=== PATIENT | male | born 1955 | race African-American/Black ===

== ENCOUNTER 2016-11-07 09:29 | Emergency (ER) | payer OTHER ==
[~2016-11-07] VITALS: Ht 185.4 cm; Wt 104.5 kg
[~2016-11-07 09:29] MED LIST: FLEXERIL 1010 MG/TAB PO; HCTZ 25MG TAB25 MG; NORCO 325 MG-51 TAB PO; SINGULAIR 110 MG/TAB PO
[2016-11-07 09:30] VITALS: TEMP 98.3
[2016-11-07 10:17] VITALS: BP 133/88
[2016-11-07 10:48] VITALS: PULSE 112
[2016-11-07] MEDS ORDERED: PRINIVIL10 MG PO (10:54)
== END 2016-11-07 10:48 | disposition home or self-care (01) ==
LOC: COL.ER 09:29
DX: S40.011A Contusion of right shoulder, initial encounter (principal); S00.531A Contusion of lip, initial encounter; Y35.811A Legal intervention involving manhandling, law enforcement official injured, initial encounter; Y04.2XXA Assault by strike against or bumped into by another person, initial encounter; Y92.238 Other place in hospital as the place of occurrence of the external cause; R00.2 Palpitations; Z77.098 Contact with and (suspected) exposure to other hazardous, chiefly nonmedicinal, chemicals; I10 Essential (primary) hypertension; J45.909 Unspecified asthma, uncomplicated; Z87.891 Personal history of nicotine dependence; S00.511A Abrasion of lip, initial encounter

== ENCOUNTER 2018-05-25 07:59 | Outpatient (RCR) | payer OTHER ==
[~2018-05-25 07:59] MED LIST changes: +PRINIVIL10 MG PO
== END 2018-08-18 15:14 | disposition home or self-care (01) ==
LOC: WSOH 07:59
DX: Z01.89 Encounter for other specified special examinations (principal)

== ENCOUNTER 2018-07-26 22:53 | Emergency (ER) | payer OTHER ==
[~2018-07-26] VITALS: Ht 185.4 cm; Wt 104.5 kg
[2018-07-26 23:01] VITALS: TEMP 97.9
[2018-07-26 23:34] LABS: BASO % 0.2 % (0.0-2.0); EOS % 0.3 % (0-4.0); GRAN # 4.9 (1.4-6.5); GRAN % 56.6 % (42.2-75.2); HEMOGLOBIN 14.1 g/dl (13.5-18.0); LYMPH # 3.1 (1.2-3.4); LYMPH % 35.8 % (20.0-51.0); MEAN CELL VOLUME 86 fl (80.0-100.0); MEAN CORPUSCULAR HEMOGLOBIN 29 pg (27.0-31.0); MEAN CORPUSCULAR HGB CONC 34 g/dl (33.0-37.0); MEAN PLATELET VOLUME 10.6 fl (7.4-10.4); MONO # 0.6 (0.1-0.6); MONO % 6.6 % (1.7-9.3); PLATELET COUNT 162 K/mm3 (130-400); RED BLOOD COUNT 4.89 M/mm3 (4.20-5.60); REDCELL DISTRIBUTION WIDTH-CV 14.6 % (11.5-14.5)
[2018-07-26 23:44] LABS: ALBUMIN 4.2 gm/dL (3.5-5.0); BILIRUBIN,TOTAL 0.4 mg/dL (0.0-1.0); CALCIUM 9.4 mg/dL (8.4-10.2); CREATININE, serum 1.02 (0.66-1.25); POTASSIUM 3.9 mmol/L (3.4-5.0); TOTAL PROTEIN 7.6 gm/dL (6.4-8.2)
[2018-07-26 23:50] LABS: INR 1.1 (0.8-3.0); PROTHROMBIN TIME 12.8 SECONDS (9.7-12.8)
[2018-07-26 23:54] LABS: TROPONIN-I 0.013 ng/mL (0.000-0.035)
[2018-07-27 04:25] VITALS: BP 121/76; PULSE 69
== END 2018-07-27 04:25 | disposition home or self-care (01) ==
LOC: COL.ER 22:53
PROVIDERS: Emergency Medicine
DX: R20.2 Paresthesia of skin (principal); G45.9 Transient cerebral ischemic attack, unspecified; I10 Essential (primary) hypertension
CPT/HCPCS: J7030

== ENCOUNTER → 2018-10-23 | Outpatient (CLI) | payer OTHER | LOC: COL.VAS 09:26 | DX: G45.9 Transient cerebral ischemic attack, unspecified (principal) ==

== ENCOUNTER 2019-12-21 11:27 | Emergency (ER) | payer OTHER ==
[~2019-12-21] VITALS: Ht 185.4 cm; Wt 106.8 kg
[2019-12-21 11:44] VITALS: TEMP 98
[2019-12-21] MEDS ORDERED: SINGULAIR 110 MG/TAB PO (12:58)
[2019-12-21] MEDS ORDERED: CLARITIN 1010 MG/TAB PO (12:58)
[2019-12-21 13:07] VITALS: BP 158/89; PULSE 81
== END 2019-12-21 13:07 | disposition home or self-care (01) ==
LOC: COL.ER 11:27
DX: J45.20 Mild intermittent asthma, uncomplicated (principal); H69.91 Unspecified Eustachian tube disorder, right ear; I10 Essential (primary) hypertension

== ENCOUNTER 2020-02-07 09:02 | Emergency (ER) | payer OTHER ==
[~2020-02-07] VITALS: Ht 185.4 cm; Wt 109.1 kg
[~2020-02-07 09:02] MED LIST changes: +CLARITIN 1010 MG/TAB PO
[2020-02-07 09:12] VITALS: TEMP 97.8
[2020-02-07 12:45] LABS: ALANINE AMINOTRANSFERASE 75 U/L (4-49); ALBUMIN 4.7 gm/dL (3.5-5.0); ALKALINE PHOSPHATASE 83 U/L (50-136); ANION GAP 10 mmol/L (7-16); AST,SGOT 56 U/L (15-37); BILIRUBIN,TOTAL 0.6 mg/dL (0.0-1.0); BLOOD UREA NITROGEN 11 mg/dL (9-20); CALCIUM 9.4 mg/dL (8.4-10.2); CARBON DIOXIDE 25 mmol/L (22-30); CHLORIDE 104 mmol/L (98-107); GLUCOSE 112 mg/dL (74-106); POTASSIUM 3.8 mmol/L (3.4-5.0); SODIUM 139 mmol/L (137-145); TOTAL PROTEIN 8.4 gm/dL (6.4-8.2)
[2020-02-07 12:58] LABS: BASO % 0.3 % (0.0-2.0); EOS # 0.1 (0.0-0.7); EOS % 1.1 % (0-4.0); GRAN % 52.2 % (42.2-75.2); HEMATOCRIT 44.9 % (42.0-52.0); HEMOGLOBIN 14.9 g/dl (13.5-18.0); LYMPH # 2.8 (1.2-3.4); LYMPH % 37.5 % (20.0-51.0); MEAN CELL VOLUME 86 fl (80.0-100.0); MEAN CORPUSCULAR HEMOGLOBIN 29 pg (27.0-31.0); MEAN CORPUSCULAR HGB CONC 33 g/dl (33.0-37.0); MEAN PLATELET VOLUME 10.6 fl (7.4-10.4); MONO # 0.6 (0.1-0.6); MONO % 8.1 % (1.7-9.3); PLATELET COUNT 171 K/mm3 (130-400); REDCELL DISTRIBUTION WIDTH-CV 14.5 % (11.5-14.5)
[2020-02-07 13:02] LABS: TROPONIN-I < 0.012 ng/mL (0.000-0.035)
[2020-02-07] MEDS ORDERED: PREDNISONE20 MG PO (14:02)
[2020-02-07 14:18] VITALS: BP 131/91; PULSE 84
== END 2020-02-07 14:20 | disposition home or self-care (01) ==
LOC: COL.ER 09:02
PROVIDERS: Physician Assistant
DX: J20.9 Acute bronchitis, unspecified (principal); J32.9 Chronic sinusitis, unspecified; I10 Essential (primary) hypertension; Z20.828 Contact with and (suspected) exposure to other viral communicable diseases; Z23 Encounter for immunization; Z87.891 Personal history of nicotine dependence; Z79.2 Long term (current) use of antibiotics

== ENCOUNTER 2020-03-17 15:24 | Emergency (ER) | payer OTHER ==
[~2020-03-17] VITALS: Ht 185.4 cm; Wt 104.5 kg
[~2020-03-17 15:24] MED LIST changes: +PREDNISONE20 MG PO
[2020-03-17 15:33] VITALS: TEMP 98.9
[2020-03-17 16:49] LABS: BASO % 0.4 % (0.0-2.0); EOS % 0.5 % (0-4.0); GRAN # 3.9 (1.4-6.5); GRAN % 52.7 % (42.2-75.2); HEMATOCRIT 42.8 % (42.0-52.0); HEMOGLOBIN 14.3 g/dl (13.5-18.0); LYMPH # 2.8 (1.2-3.4); LYMPH % 37.4 % (20.0-51.0); MEAN CELL VOLUME 86 fl (80.0-100.0); MEAN CORPUSCULAR HEMOGLOBIN 29 pg (27.0-31.0); MEAN CORPUSCULAR HGB CONC 33 g/dl (33.0-37.0); MEAN PLATELET VOLUME 10.8 fl (7.4-10.4); MONO # 0.6 (0.1-0.6); MONO % 8.3 % (1.7-9.3); PLATELET COUNT 171 K/mm3 (130-400); RED BLOOD COUNT 4.97 M/mm3 (4.20-5.60); REDCELL DISTRIBUTION WIDTH-CV 14.4 % (11.5-14.5)
[2020-03-17 16:59] LABS: ALANINE AMINOTRANSFERASE 67 U/L (4-49); ALBUMIN 4.5 gm/dL (3.5-5.0); ALKALINE PHOSPHATASE 91 U/L (50-136); ANION GAP 8 mmol/L (7-16); AST,SGOT 54 U/L (15-37); BILIRUBIN,TOTAL 0.5 mg/dL (0.0-1.0); BLOOD UREA NITROGEN 16 mg/dL (9-20); C-REACTIVE PROTEIN 1.1 mg/dL (0.0-0.9); CALCIUM 9.7 mg/dL (8.4-10.2); CARBON DIOXIDE 29 mmol/L (22-30); CHLORIDE 101 mmol/L (98-107); CREATININE, serum 1.05 (0.66-1.25); GLUCOSE 97 mg/dL (74-106); SODIUM 138 mmol/L (137-145); TOTAL PROTEIN 7.7 gm/dL (6.4-8.2)
[2020-03-17 17:08] LABS: TROPONIN-I < 0.012 ng/mL (0.000-0.035)
[2020-03-17] MEDS ORDERED: PLAVIX 75MG TAB75 MG PO (17:49)
[2020-03-17] MEDS ORDERED: HCTZ12.5TAB PO (17:51)
[2020-03-17] MEDS ORDERED: NORVASC 10MG10 MG PO (17:51)
[2020-03-17 18:00] VITALS: BP 142/94; PULSE 82
== END 2020-03-17 18:12 | disposition home or self-care (01) ==
LOC: COL.ER 15:24
PROVIDERS: Nurse Practitioner
DX: R06.00 Dyspnea, unspecified (principal); Z87.891 Personal history of nicotine dependence; Z79.02 Long term (current) use of antithrombotics/antiplatelets

== ENCOUNTER 2021-01-26 18:02 | Emergency (ER) | payer OTHER ==
[~2021-01-26] VITALS: Ht 185.4 cm; Wt 104.5 kg
[~2021-01-26 18:02] MED LIST changes: +HCTZ12.5TAB PO; +NORVASC 10MG10 MG PO; +PLAVIX 75MG TAB75 MG PO
[2021-01-26 18:18] VITALS: TEMP 98.8
[2021-01-26 18:32] LABS: BASO % 0.5 % (0.0-2.0); EOS # 0.1 K/mm3 (0.0-0.7); EOS % 1.2 % (0-4.0); GRAN # 5.3 K/mm3 (1.4-6.5); HEMATOCRIT 43.9 % (42.0-52.0); HEMOGLOBIN 14.5 g/dl (13.5-18.0); LYMPH # 2.1 K/mm3 (1.2-3.4); LYMPH % 25.9 % (20.0-51.0); MEAN CELL VOLUME 85 fl (80.0-100.0); MEAN CORPUSCULAR HEMOGLOBIN 28 pg (27.0-31.0); MEAN CORPUSCULAR HGB CONC 33 g/dl (33.0-37.0); MEAN PLATELET VOLUME 9.8 fl (7.4-10.4); MONO # 0.6 K/mm3 (0.1-0.6); PLATELET COUNT 166 K/mm3 (130-400); RED BLOOD COUNT 5.17 M/mm3 (4.20-5.60)
[2021-01-26 18:50] LABS: ALBUMIN 4.2 gm/dL (3.4-4.8); BILIRUBIN,TOTAL 0.6 mg/dL (0.2-1.2); CREATININE, serum 1.17 mg/dL (0.72-1.25); POTASSIUM 3.8 mmol/L (3.5-4.5); TOTAL PROTEIN 8.2 gm/dL (6.2-8.1)
[2021-01-26 18:56] LABS: TROPONIN-I 0.019 ng/mL (0.00-0.033)
[2021-01-26 19:23] VITALS: BP 144/94; PULSE 89
== END 2021-01-26 19:27 | disposition home or self-care (01) ==
LOC: COL.ER 18:02
PROVIDERS: Emergency Medicine
DX: R07.9 Chest pain, unspecified (principal); R05.9 Cough, unspecified; I10 Essential (primary) hypertension; I48.91 Unspecified atrial fibrillation; J45.909 Unspecified asthma, uncomplicated; Z79.899 Other long term (current) drug therapy; Z79.02 Long term (current) use of antithrombotics/antiplatelets

== ENCOUNTER 2021-08-15 05:24 | Day surgery (SDC) | payer OTHER, MEDICARE ==
[~2021-08-15] VITALS: Ht 185.4 cm; Wt 102.2 kg
[2021-08-15] VITALS (9 sets, daily range): BP systolic 117–1117; BP diastolic 70–91; PULSE 69–77; TEMP 97.3–97.7
[2021-08-15] MEDS ORDERED: COREG 25MG25 MG/TAB PO (06:02)
[2021-08-15] MEDS ORDERED: PRILOSEC 20MG20 MG PO (06:03)
[2021-08-15] MEDS ORDERED: HYTRIN 1MG C1 MG/CAP PO (06:04)
[2021-08-15] MEDS ORDERED: NORCO 325 MG-51 TAB PO (09:58)
--- NOTE | 2021-08-15 10:27 | NUR ---
Patient returns to room 7 per cart from PACU per cart accompanied by Kristy TRENT and is awake and alert. IV fluids infusing. Incisional sites X3 covered with Exofin and wound edges well approixmated. Temp 97.6 and room air sats 95%. Siderails up x2 and call light in reach. Spouse in room. Taking ice chips.
--- NOTE | 2021-08-15 10:42 | NUR ---
Resting and offers no compliants of pain or nausea.
--- NOTE | 2021-08-15 10:57 | NUR ---
Continues to rest without complaints. Drinking water. Denies pain or nausea.
--- NOTE | 2021-08-15 11:12 | NUR ---
Continues to rest without complaints.
--- NOTE | 2021-08-15 11:27 | NUR ---
Sipping on water. Continues to deny pain or nausea.
--- NOTE | 2021-08-15 11:57 | NUR ---
Eating muffin and drinking water. Continues to deny the need for pain medications. IV fluids all infused and converted to INT.
--- NOTE | 2021-08-15 12:27 | NUR ---
Tolerates muffin and water.
--- NOTE | 2021-08-15 12:42 | NUR ---
Assisted up to the bathroom. Voids and returns to room. Complains of increasing incisional pain at 6-7/10. Medicated with [place] 5mg one tab for pain.
--- NOTE | 2021-08-15 13:25 | NUR ---
Dismissal instructions given to patient and spouse and both verbalize understanding of these. States that the [place] was effective for pain. Patient dresses self.
--- NOTE | 2021-08-15 13:31 | NUR ---
Patient dismissed to home driven by spouse and taken to the front door per wheelchair and assisted into private vehicle with instructions in hand.
== END 2021-08-15 13:31 | disposition home or self-care (01) ==
LOC: SDCO 05:24
DX: K43.9 Ventral hernia without obstruction or gangrene (principal); Z86.73 Personal history of transient ischemic attack (TIA), and cerebral infarction without residual deficits; Z79.02 Long term (current) use of antithrombotics/antiplatelets; I10 Essential (primary) hypertension; G47.33 Obstructive sleep apnea (adult) (pediatric); K21.9 Gastro-esophageal reflux disease without esophagitis; Z79.51 Long term (current) use of inhaled steroids; Z79.899 Other long term (current) drug therapy
CPT/HCPCS: C1781; J0690; J1100; J1885; J2405; J2704; J3010; J7120

== ENCOUNTER 2021-09-21 11:21 | Emergency (ER) | payer OTHER, MEDICARE ==
[~2021-09-21] VITALS: Ht 182.9 cm; Wt 102.3 kg
[~2021-09-21 11:21] MED LIST changes: +COREG 25MG25 MG/TAB PO; +HYTRIN 1MG C1 MG/CAP PO; +PRILOSEC 20MG20 MG PO
[2021-09-21 11:35] VITALS: TEMP 98.2
[2021-09-21 11:59] LABS: BASO % 0.3 % (0.0-2.0); EOS # 0.1 K/mm3 (0.0-0.7); GRAN # 3.7 K/mm3 (1.4-6.5); GRAN % 55.2 % (42.2-75.2); HEMATOCRIT 43.3 % (42.0-52.0); HEMOGLOBIN 14.2 g/dl (13.5-18.0); LYMPH # 2.1 K/mm3 (1.2-3.4); LYMPH % 31.9 % (20.0-51.0); MEAN CELL VOLUME 86 fl (80.0-100.0); MEAN CORPUSCULAR HEMOGLOBIN 28 pg (27-31); MEAN CORPUSCULAR HGB CONC 33 g/dl (33.0-37.0); MEAN PLATELET VOLUME 10.2 fl (7.4-10.4); MONO # 0.8 K/mm3 (0.1-0.6); MONO % 11.2 % (1.7-9.3); PLATELET COUNT 193 K/mm3 (130-400); RED BLOOD COUNT 5.04 M/mm3 (4.20-5.60); REDCELL DISTRIBUTION WIDTH-CV 13.8 % (11.5-14.5)
[2021-09-21 12:19] LABS: ALANINE AMINOTRANSFERASE 28 U/L (0-55); ALBUMIN 3.6 gm/dL (3.4-4.8); ALKALINE PHOSPHATASE 77 U/L (40-150); ANION GAP 10 mmol/L (7-16); AST,SGOT 30 U/L (5-34); BILIRUBIN,TOTAL 0.5 mg/dL (0.2-1.2); BLOOD UREA NITROGEN 10 mg/dL (8-26); CALCIUM 9.6 mg/dL (8.4-10.2); CARBON DIOXIDE 23 mmol/L (23-31); CHLORIDE 103 mmol/L (98-107); GLUCOSE 117 mg/dL (70-99); POTASSIUM 3.9 mmol/L (3.5-4.5); SODIUM 136 mmol/L (136-145); TOTAL PROTEIN 7.9 gm/dL (6.2-8.1)
[2021-09-21 12:29] LABS: TROPONIN-I < 0.010 ng/mL (0.00-0.033)
[2021-09-21 13:14] VITALS: BP 158/98; PULSE 74
== END 2021-09-21 13:16 | disposition home or self-care (01) ==
LOC: COL.ER 11:21
PROVIDERS: Emergency Medicine
DX: R07.89 Other chest pain (principal); R05.1 Acute cough; R09.81 Nasal congestion; Z20.822 Contact with and (suspected) exposure to COVID-19

== ENCOUNTER 2023-07-28 08:47 | Emergency (ER) | payer OTHER, MEDICARE ==
[~2023-07-28] VITALS: Ht 185.4 cm; Wt 102.3 kg
[2023-07-28 08:51] VITALS: BP 152/98; TEMP 98.3
[2023-07-28] MEDS ORDERED: TESSALON P100 MG/CAP PO (10:38)
[2023-07-28] MEDS ORDERED: PREDNISONE50 MG PO (10:38)
[2023-07-28 10:48] VITALS: PULSE 77
== END 2023-07-28 10:48 | disposition home or self-care (01) ==
LOC: COL.ER 08:47
DX: J02.9 Acute pharyngitis, unspecified (principal); K21.9 Gastro-esophageal reflux disease without esophagitis; Z87.891 Personal history of nicotine dependence; Z79.899 Other long term (current) drug therapy

== ENCOUNTER 2024-01-29 18:35 | Emergency (ER) | payer OTHER ==
[~2024-01-29] VITALS: Ht 185.4 cm; Wt 104.5 kg
[~2024-01-29 18:35] MED LIST changes: +PREDNISONE50 MG PO; +TESSALON P100 MG/CAP PO
[2024-01-29 18:39] VITALS: TEMP 97.8
[2024-01-29 19:17] LABS: BASO % 0.3 % (0.0-2.0); EOS # 0.1 K/mm3 (0.0-0.7); EOS % 0.9 % (0.0-4.0); GRAN # 3.5 K/mm3 (1.4-6.5); GRAN % 55.1 % (42.2-75.2); HEMATOCRIT 43.5 % (42.0-52.0); HEMOGLOBIN 14.8 g/dl (13.5-18.0); LYMPH # 2.2 K/mm3 (1.2-3.4); LYMPH % 34.4 % (20.0-51.0); MEAN CELL VOLUME 86 fl (80.0-100.0); MEAN CORPUSCULAR HEMOGLOBIN 29 pg (27-31); MEAN CORPUSCULAR HGB CONC 34 g/dl (33.0-37.0); MEAN PLATELET VOLUME 10.5 fl (7.4-10.4); MONO # 0.6 K/mm3 (0.1-0.6); MONO % 8.8 % (1.7-9.3); PLATELET COUNT 166 K/mm3 (130-400); RED BLOOD COUNT 5.08 M/mm3 (4.20-5.60)
[2024-01-29 19:33] LABS: ALBUMIN 4.2 g/dL (3.4-4.8); BILIRUBIN,TOTAL 0.3 mg/dL (0.2-1.2); CALCIUM 10.2 mg/dL (8.4-10.2); CREATININE, serum 1.2 mg/dL (0.72-1.25); POTASSIUM 3.8 mEq/L (3.5-4.5); TOTAL PROTEIN 8.1 g/dl (6.2-8.1)
[2024-01-29 19:39] LABS: TROPONIN-I 0.014 ng/mL (0.00-0.033)
[2024-01-29] MEDS ORDERED: AMOXICILLIN 8751 TAB PO (19:51)
[2024-01-29 20:05] VITALS: BP 166/102; PULSE 72
== END 2024-01-29 20:05 | disposition home or self-care (01) ==
LOC: COL.ER 18:35
PROVIDERS: Physician Assistant
DX: J40 Bronchitis, not specified as acute or chronic (principal)

== ENCOUNTER 2024-02-26 06:56 | Outpatient (RCR) | payer MEDICARE, OTHER ==
[2024-02-25 07:43] VITALS: BP 109/73; PULSE 61; TEMP 97.9
[2024-02-25 17:51] VITALS: BP 127/84; PULSE 83; TEMP 97.6
[~2024-02-26] VITALS: Ht 185.4 cm; Wt 92.0 kg
[~2024-02-26 06:56] MED LIST changes: +AMOXICILLIN 8751 TAB PO; +NS Flush 10 ML SYRINGE (Power PICC Line - 10 mL PRN) ICA; +NS Flush 10 ML SYRINGE (Power PICC Line - 10 mL Q12hr) ICA SCH; +cefTRIAXone 2 G in Water For Injection,Sterile 20 ML IV SCH
[2024-02-27 07:15] VITALS: BP 107/72; PULSE 80; TEMP 98.2
[2024-02-27 18:14] VITALS: BP 119/80; PULSE 87; TEMP 98.8
[2024-02-28 18:24] VITALS: BP 126/82; PULSE 83; TEMP 97.3
== END 2024-02-28 ==
LOC: EUO
DX: S06.5XAD Traumatic subdural hemorrhage with loss of consciousness status unknown, subsequent encounter (principal); B95.7 Other staphylococcus as the cause of diseases classified elsewhere; X58.XXXD Exposure to other specified factors, subsequent encounter
CPT/HCPCS: J0696